=== PATIENT | male | born 1990 | race American Indian/Alaskan Native ===

== ENCOUNTER 2019-06-12 19:11 | Emergency (ER) | payer OTHER ==
[~2019-06-12] VITALS: Ht 177.8 cm; Wt 79.4 kg
[~2019-06-12 19:11] MED LIST: CLEOCIN HCL300 MG PO; VISTARIL25 MG PO
[2019-06-12] MEDS ORDERED: CRUTCH1 EACH (19:59)
[2019-06-12] MEDS ORDERED: NORCO 5-325 TA1 EACH PO (19:59)
[2019-06-12] MEDS ORDERED: BACTRIM DS TAB1 EACH PO (20:11)
[2019-06-12] MEDS ORDERED: CEPHALEXIN500 MG PO (20:11)
== END 2019-06-12 20:24 | disposition home or self-care (01) ==
LOC: ED 19:11
DX: S80.02XA Contusion of left knee, initial encounter (principal); V80.010A Animal-rider injured by fall from or being thrown from horse in noncollision accident, initial encounter
CPT/HCPCS: 73560; 99283-25

== ENCOUNTER 2020-06-25 07:00 | Day surgery (SDC) | payer OTHER ==
[~2020-06-25 07:00] MED LIST changes: +BACTRIM DS TAB1 EACH PO; +CEPHALEXIN500 MG PO; +CRUTCH1 EACH; +NORCO 5-325 TA1 EACH PO
[2020-06-25] MEDS ORDERED: DICLOFENAC35 MG PO (07:29)
[2020-06-25] MEDS ORDERED: MORPHINE SULFAT30 M1 PO (07:30)
[2020-06-25] MEDS ORDERED: DICLOFENAC POTA50 MG PO (07:32)
[2020-06-25] MEDS ORDERED: MORPHINE SULFAT15 MG PO (07:33)
--- NOTE | 2020-06-25 08:26 | NUR ---
0815: THIS RN ASSISTS MIKE ZAIDI WITH NERVE BLOCK. CONT PULSE OXIMETER IN PLACE, SATS GREATER THAN 94% ON RA. DR. KIRKLAND IN PT ROOM TO ALMAZ. PT FATHER REMAINS AT BEDSIDE.
[2020-06-25] MEDS ORDERED: HYDROCODON-ACE1 EA11 PO (10:04)
--- NOTE | 2020-06-25 10:41 | NUR ---
06/25/20 1041 Gema Keita 1004 PT ARRIVED IN PACU NON RESPONSIVE TO NOXIOUS STIMULI WITH OPA IN PLACE. CHIN LIFT HELD BY RN. 1018 PT REACTIVE. OPA REMOVED. ICE TO R SHOULDER AREA. 1030 C/O PAIN IN R SHOULDER AROUND TOP OF INCISION. TC TO ANESTHESIA FOR NEW ORDERS. 1033 FENTANYL 50MCG GIVEN IVP FOR 4/10 R SHOULDER PAIN. 1041 PAIN DOWN TO 3/10 AND TOLERABLE PER PT.
--- NOTE | 2020-06-25 11:00 | NUR ---
PT ARRIVES TO DS RM 12 FROM PACU AWAKE. PT HAS SURGICAL PICTURES IN HAND ON ARRIVAL. STATES PAIN ON TOP OF RIGHT SHOULDER 3/10, SLING AND ICE IN PLACE. PT DENIES NAUSEA, TOLERATES WATER WITH NO PROBLEMS. PT FATHER AT BEDSIDE. CALL LIGHT WITHIN REACH.
--- NOTE | 2020-06-25 12:04 | NUR ---
PT RESTING IN BED WITH FATHER AT BEDSIDE. PT DENIES ANY NEEDS AT THIS TIME, ICED WATER REFILLED. PT TOLERATES PO WELL. PT ENC TO USE CALL LIGHT WITH URGE TO VOID. THIS RN STEPS OFF FLOOR FOR LUNCH, VERBAL REPORT GIVEN TO MARINA STANLEY.
--- NOTE | 2020-06-25 12:33 | NUR ---
PT IS GIVEN VERBAL DC INSTRUCTIONS, WITH DAD PRESENT. QUESTIONS ARE ASKED AND ANSWERED. PT IS TAKEN TO CAR VIA WC, HE IS ABLE TO TRANSFER HIMSELF FROM WC TO CAR.
--- NOTE | 2020-06-26 19:04 | OR ---
[facility] [address], [place] [address] Signed DATE OF OPERATION: 06/25/2020 SURGEON: Jasvir Barcenas MD PREOPERATIVE DIAGNOSIS: Displaced midshaft humerus fracture, right. POSTOPERATIVE DIAGNOSIS: Displaced midshaft humerus fracture, right. PROCEDURE PERFORMED: Closed reduction, intramedullary rodding, right humerus. COMPUTER PROCESSING SCHEDULER: Myriam Rice PA-C. ANESTHESIA: General with supraclavicular block. Myriam was present and critical for all portions of procedure. BLOOD LOSS: Minimal. IMPLANTS: A 7 x 270 Synthes humeral racquel with two locking screws. BRIEF HISTORY: Caleb is a 29-year-old gentleman with painful displaced fractures of midshaft humerus. 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 Risks and benefits of operative treatment were discussed with him secondary to the fact that was unstable, transverse and displaced. He elected to proceed. DESCRIPTION OF PROCEDURE: Once consent was obtained, he was taken to the operating room after adequate anesthesia. He was placed supine on the operating room table with a bump under the shoulder. The arm was then prepped and draped in a standard sterile fashion from the shoulder was approached proximally through a 2-inch incision off the anterior lateral corner. The anterior raphe was then split in the deltoid and this allowed visualization of the rotator cuff. The rotator cuff was incised longitudinally and spread to place the guidewire. The guidewire was then placed at the articular margin into the humerus Electronically Signed By: JASVIR BARCENAS MD 06/26/20 1904 PATIENT NAME: CALEB MONTES OPERATIVE REPORT DATE OF : 86 REPORT #: [id number] PHYSICIAN: JASVIR BARCENAS MD PCP: MYRIAM GOMEZ REPORT IS CONFIDENTIAL AND NOT TO BE RELEASED WITHOUT AUTHORIZATION [facility] [address], [place] [address] Signed in a center-center position under image intensifier guidance. The 10 mm drill was then used to open the proximal humerus. The guide pin was then removed and the long guidewire was then advanced down to the fracture, which was reduced using an F tool. The guidewire was then advanced into the distal position and measured to a 270 and was found to be in good length. The proximal interlocking screw was placed through the guide and using a separate stab incision and blunt dissection down to the bone. The appropriate length screw was placed. The distal interlocking screw was placed using perfect circles technique through a separate stab incision. Again, blunt dissection was taken through the muscle down to the bone and a soft tissue protector was placed in it to protect the drill bit from surrounding soft tissue. The distal interlocking screw was drilled and a 30 mm screw was placed. The final radiograph showed anatomic reduction and placement of the screws. All wounds were copiously irrigated with antibiotic solution. The rotator cuff was closed using #2 FiberWire. The deltoid was closed using #0 Stratafix, the subcutaneous tissue with 2-0 Stratafix, and the skin with daniella. The wounds were dressed with Acticoat dressing and OpSite. He tolerated the procedure well. All sponge, needle, and instrument counts were correct. Jasvir Barcenas MD BA/MODL /[id number] Copies: ~ Electronically Signed By: JASVIR BARCENAS MD 06/26/20 1904 PATIENT NAME: CALEB MONTES OPERATIVE REPORT DATE OF : 86 REPORT #: [id number] PHYSICIAN: JASVIR BARCENAS MD PCP: MYRIAM GOMEZ REPORT IS CONFIDENTIAL AND NOT TO BE RELEASED WITHOUT AUTHORIZATION
== END 2020-06-25 12:30 | disposition home or self-care (01) ==
LOC: DS 07:00
PROVIDERS: ATTEND Specialist
PROC: 0PSF04Z Reposition Right Humeral Shaft with Internal Fixation Device, Open Approach (ICD-10-PCS; principal; 2020-06-25 08:15)
DX: S42.331A Displaced oblique fracture of shaft of humerus, right arm, initial encounter for closed fracture (principal); W19.XXXA Unspecified fall, initial encounter; Z79.899 Other long term (current) drug therapy
CPT/HCPCS: 01740; 64415; 73060; 76942; A9270; C1713; J0330; J1100; J1885; J2001; J2250; J2405; J2704; J2795; J3010; J3370; J7060; J7121